=== PATIENT | male | born 1985 | race Caucasian/White ===

== ENCOUNTER 2025-04-02 10:48 | Inpatient (IN) ==
[~2025-04-02 10:48] MED LIST: RAPID SEQUENCE INDUCTION BAG ONE
[2025-04-02] MEDS ORDERED: ASPIRIN CHEW 324 MG ONE (11:04)
[2025-04-02] MEDS ORDERED: SODIUM BICARBONATE 8.4% 150 MEQ in WATER, STERILE 1,000 ML IV SCH (11:15)
--- NOTE | 2025-04-02 11:30 | Emergency Department Note ---
Impression & Plan Cardiac arrest, Acute ST elevation myocardial infarction (STEMI) of inferior wall ED Provider Note HISTORY OF PRESENT ILLNESS: Patient is a 39-year-old male presenting in cardiac arrest. Patient had presented to an outpatient plasma donation center to inquire about donating plasma and while getting registered he had a syncopal event. Bystander CPR was initiated at the infusion center and an AED was placed. Patient received multiple shocks before EMS arrived secondary to him being in ventricular fibrillation. On EMS arrival, the patient was confirmed to be in ventricular fibrillation and given a total of 7 epinephrine, 1 amp of bicarb, 1 g of IV mag and 450 of amiodarone with EMS prehospital. He was intubated with an i-gel. He did have prehospital return of spontaneous circulation, but on repeat pulse check he had lost pulses and ACLS was continued. Patient was found to be in PEA on further rhythm checks. He arrived to the emergency department with CPR in process. Last epinephrine was about 2 minutes prior to arrival in ER. ROS: as above PHYSICAL EXAM: Constitutional: Patient appears in significant distress. Talha device is supplying chest compressions on arrival to the ER. Patient's face is mottled. Pupils are dilated and nonreactive. Cardiovascular: Chest compressions being performed by Talha device. Pulmonary/Chest: Patient is being ventilated via [id number] with an Igel in place. Bilateral breath sounds present. MDM: - Patient arrives as a cardiac arrest with chest compressions being performed by a Talha device. Patient had a syncopal episode prehospital at a plasma infusion center. He had bystander CPR started at the infusion center and an AED supplied 5 shocks prior to EMS arriving on the scene. On EMS arrival, the patient was noted to be in ventricular fibrillation and was shocked an additional 6 times by EMS prehospital. He received a total of 7 epinephrine, 1 amp of bicarb, 1 g of IV magnesium and 450 of amiodarone with EMS prehospital. They reports that they did obtain ROSC prehospital for about 1 minute, but then pulses were lost again and resuscitation was continued. Further pulse check showed that the patient was in PEA and pulseless. He presents with compressions being performed by Talha device. - IV access was obtained. Bedside [id number]-rw-[id number] ultrasound of the heart on first pulse checks that showed no cardiac activity and no obvious flattening of the interventricular septum to suggest PE. Patient was pulseless and in PEA on the monitor. Chest compressions were resumed. He was given a total of an additional 3 of epinephrine while in the emergency department, 2 A of bicarb. Further pulse check showed PEA. He was given a gram of calcium and 1 more gram of magnesium in the emergency department. [id number]-hw-[id number] BMP shows stable electrolytes but a fingerstick glucose of 452. On repeat pulse check at 1058, the patient had a palpable femoral pulse and carotid pulse. Bedside [id number]-fn-[id number] echo showed organized cardiac activity. On telemetry, the patient appears to have ST elevations on the monitor. Bedside EKG obtained at 1101 and interpreted by myself showed an inferior STEMI. ST elevations noted in leads II, III and aVF with reciprocal changes. Heart alert was activated. Dr. Hylton with interventional cardiology who presented to bedside. Patient had an Igel in place and decision was made to get a definitive airway prior to taking to the Watch Band Assembler. Patient's repeat neurological exam shows that he is withdrawing from pain when nurses attempt to IVs in his upper extremities. Pupils are now 3 mm and reactive. He was given 20 mg of IV etomidate and 100 mg of IV succinylcholine for sedation for ET tube placement. A 7.5 ET tube was placed initially at 23 cm at the lip but was advanced to 25. Chest x-ray imaging reviewed by myself shows appropriate tube placement per my interpretation. Patient was taken up to the Watch Band Assembler for further evaluation and management. He will be admitted to the [facility] service in the ICU post Watch Band Assembler. I have personally spent 64 minutes of critical care time in the direct management of this patient. This includes bedside care, interpretation of diagnostic studies, and testing, discussion with consultants, patient, and family members, and other required patient management activities. This 64 minutes is in excess of all separately billable procedures. PROCEDURE: Endotracheal Intubation Indication: Definitive airway; cardiac arrest. The patient was on 100% oxygen via Igel and then when this was removed he was placed on [id number] ventilation. Suction, airway equipment, RSI drugs, respiratory equipment, and appropriate personnel were prepared prior to the initiation of the procedure. A time out was taken. Induction was performed with 20 mg IV etomidate and 100 mg IV succinylcholine. After observing the clinical benefit of the medications, the airway was easily visualized utilizing a S3 glidescope blade. A 7.5 size ETT tube was placed atraumatically to 23 cm using standard technique. The cuff inflated without signs of malfunction. Tube was advanced to 25 cm at the lip. There were bilateral breath sounds, positive colormetric change, no gastric sounds, a good capnography waveform, and post procedure pulse oximetry was 100%. There were no complications. ASSESSMENT AND PLAN: Diagnosis: Cardiac arrest; acute STEMI of inferior wall Plan: to pharmacy laboratory technician Past Med/Surg History Problem List (Updated 04/02/25 @ 11:42 by Cynthia Boles MD) Acute ST elevation myocardial infarction (STEMI) of inferior wall (Acute) Cardiac arrest (Acute) Social History Smoking Status: Unknown if ever smoked Results & Data (ED) Vital Signs Vital Signs - 24 hr 04/02/25 10:51 04/02/25 10:51 04/02/25 11:09 Pulse Rate 95 H Pulse Rate [Finger] Respiratory Rate 32 H Respiratory Effort / Characteristics Mechanically Ventilated Blood Pressure 265/137 H Blood Pressure [Right Arm] Blood Pressure Mean 179 Blood Pressure Mean [Right Arm] Pulse Oximetry 100 100 Oxygen Delivery Method Other Fraction of Inspired Oxygen Sepsis New/Unexplained Change in Mental Status N/A Sepsis Action Taken by Nursing No Action Required 04/02/25 11:09 04/02/25 11:10 04/02/25 11:30 Pulse Rate Pulse Rate [Finger] 105 H Respiratory Rate 30 H 28 H Respiratory Effort / Characteristics Mechanically Ventilated Blood Pressure Blood Pressure [Right Arm] 158/112 H Blood Pressure Mean Blood Pressure Mean [Right Arm] 127 Pulse Oximetry 100 100 Oxygen Delivery Method Mechanical Vent Mechanical Vent Fraction of Inspired Oxygen 80 Sepsis New/Unexplained Change in Mental Status Sepsis Action Taken by Nursing Laboratory Data Lab Results 04/02/25 04/02/25 Range/Units 10:54 10:57 POC Hgb 16.7 (14.0-18.0) g/dl POC Hct 49 (42-52) % POC Sodium 133 L (135-144) mmol/L POC Potassium 3.7 (3.3-5.0) mmol/L POC Chloride 99 L (101-112) mmol/L POC Total CO2 18 L (24-31) mmol/L POC Anion Gap 20.0 (16-25) mmol/L POC BUN 21 H (7-18) mg/dl POC Creatinine 1.4 H (0.6-1.3) mg/dl POC Glucose 425 H* (70-99) mg/dl POC Glucose (other) 412 H* (70-99) mg/dl POC Ioniz Calcium Dilia 1.05 L (1.12-1.32) mmol/l Administered Medications Discontinued Medications Amiodarone HCl/Dextrose (Amiodarone 360mg / 200ml D5w (Watch Band Assembler Use Only)) Confirm Administered Dose 360 mg IV .STK-MED ONE Stop: 04/02/25 11:55 Last Admin: 04/02/25 12:49 Dose: 360 mg Documented By: TLF Amiodarone HCl (Amiodarone Hcl Inj 50 Mg/Ml 3 Ml Vial (Watch Band Assembler Use Only)) Confirm Administered Dose 300 mg IV .STK-MED ONE Stop: 04/02/25 11:51 Last Admin: 04/02/25 12:48 Dose: 300 mg Documented By: TLF Clopidogrel Bisulfate (Clopidogrel Bisulfate 300 Mg Tab) Confirm Administered Dose 600 mg .ROUTE .STK-MED ONE Stop: 04/02/25 12:37 Last Admin: 04/02/25 12:49 Dose: 600 mg Documented By: TLF Eptifibatide (Eptifibatide 2 Mg/Ml 10 Ml Vial (Watch Band Assembler Use Only)) Confirm Administered Dose 40 mg IV .STK-MED ONE Stop: 04/02/25 11:43 Last Admin: 04/02/25 12:46 Dose: 15 mg Documented By: TLF Eptifibatide (Eptifibatide 0.75 Mg/Ml 75mg Vial (Watch Band Assembler Use Only)) Confirm Administered Dose 75 mg IV .STK-MED ONE Stop: 04/02/25 11:43 Last Increment: 04/02/25 12:48 Dose: 12.8 mg Documented By: TLF Fentanyl Citrate (Fentanyl Citrate Pf 100 Mcg/2 Ml Vial) Confirm Administered Dose 100 mcg .ROUTE .STK-MED ONE Stop: 04/02/25 11:05 Last Admin: 04/02/25 12:45 Dose: 100 mcg Documented By: TLF Fentanyl Citrate (Fentanyl Citrate Pf 100 Mcg/2 Ml Vial) Confirm Administered Dose 100 mcg .ROUTE .STK-MED ONE Stop: 04/02/25 12:19 Last Increment: 04/02/25 12:49 Dose: 50 mcg Documented By: TLF Heparin Sodium (Porcine) (Heparin (Porcine) 1000 Unit/Ml 10 Ml (Watch Band Assembler Use Only)) Confirm Administered Dose 10,000 units .ROUTE .STK-MED ONE Stop: 04/02/25 11:05 Last Admin: 04/02/25 12:45 Dose: 9,000 units Documented By: LASHONDA Heparin Sodium/Sodium Chloride (Heparin In Nss Infusion 1000 Unit/500 Ml (2 U/Ml) Bag) Confirm Administered Dose 3,000 units IV .STK-MED ONE Stop: 04/02/25 11:05 Last Admin: 04/02/25 12:45 Dose: 3,000 units Documented By: LASHONDA Ioversol (Optiray 350) Confirm Administered Dose 1 ml .ROUTE .STK-MED ONE Stop: 04/02/25 11:05 Last Admin: 04/02/25 12:45 Dose: 170 ml Documented By: LASHONDA Midazolam HCl (Midazolam Hcl 1 Mg/Ml 2ml Vial) Confirm Administered Dose 2 mg .ROUTE .STK-MED ONE Stop: 04/02/25 11:04 Last Admin: 04/02/25 12:44 Dose: 2 mg Documented By: LASHONDA Midazolam HCl (Midazolam Hcl 1 Mg/Ml 2ml Vial) Confirm Administered Dose 2 mg .ROUTE .STK-MED ONE Stop: 04/02/25 11:54 Last Admin: 04/02/25 12:48 Dose: 2 mg Documented By: LASHONDA Midazolam HCl (Midazolam Hcl 1 Mg/Ml 2ml Vial) Confirm Administered Dose 2 mg .ROUTE .STK-MED ONE Stop: 04/02/25 12:19 Last Admin: 04/02/25 12:49 Dose: 2 mg Documented By: LASHONDA Nicardipine HCl (Nicardipine 2,000 Mcg/20 Ml Syr) Confirm Administered Dose 2,000 mcg .ROUTE .STK-MED ONE Stop: 04/02/25 11:05 Last Admin: 04/02/25 12:46 Dose: 2,000 mcg Documented By: LETICIA Nitroglycerin/Dextrose (Nitroglycerin/D5w 100mcg/Ml 20ml Syr) Confirm Administered Dose 2,000 mcg .ROUTE .STK-MED ONE Stop: 04/02/25 11:05 Last Admin: 04/02/25 12:46 Dose: 2,000 mcg Documented By: LETICIA Propofol (Propofol Iv Emulsion 10 Mg/Ml 100 Ml Vial (Watch Band Assembler Use Only)) Confirm Administered Dose 1,000 mg IV .[employer] ONE Stop: 04/02/25 12:21 Last Admin: 04/02/25 12:49 Dose: 1,000 mg Documented By: TLF Imaging Data Radiologist's Impression: Chest X-Ray 04/02/25 00:00 XR chest 1V portable CLINICAL HISTORY: HEART ALERT COMPARISON STUDY: None FINDINGS: Endotracheal tube tip is at the thoracic inlet. Heart size and pulmonary vasculature are normal. There is patchy consolidation at the right mid and upper lung. No pleural effusion or pneumothorax seen. IMPRESSION: 1. Endotracheal tube tip is at the thoracic inlet. 2. Patchy consolidation at the right lung could represent pneumonia, pulmonary contusion, or asymmetric pulmonary edema. ACT 112: Negative or not required by law. Electronically signed by: Rodrick Katz M.D. 04/02/2025 11:43 AM Discharge Plan Visit Data Chief Complaint: Cardiac Arrest/CPR ED Provider: Cynthia Boles Discharge Problem: Cardiac arrest, Acute ST elevation myocardial infarction (STEMI) of inferior wall Patient Disposition: Admitted As Inpatient Condition: Critical Discharge Instructions Interventions: ED Discharge Assessment Last Done: 04/02/25 11:15
--- NOTE | 2025-04-02 11:45 | XRay Report ---
XR chest 1V portable CLINICAL HISTORY: HEART ALERT COMPARISON STUDY: None FINDINGS: Endotracheal tube tip is at the thoracic inlet. Heart size and pulmonary vasculature are no rmal. There is patchy consolidation at the right mid and upper lung. No pleural effusion or pneumotho rax seen. IMPRESSION: 1. Endotracheal tube tip is at the thoracic inlet. 2. Patchy consolidation at the right lung could represent pneumonia, pulmonary contusion, or asymmetr ic pulmonary edema. ACT 112: Negative or not required by law. Electronically signed by: Rodrick Katz M.D. 04/02/2025 11:43 AM
[2025-04-02] MEDS: MIDAZOLAM HCL 1 MG/ML 2ML VIAL ONE ×3 (12:44→12:49)
[2025-04-02] MEDS: OPTIRAY 350 ONE (12:45)
[2025-04-02] MEDS: HEPARIN (PORCINE) 1000 UNIT/ML 10 ML (CATH LAB USE ONLY) ONE (12:45)
[2025-04-02] MEDS: niCARdipine 2,000 MCG/20 ML SYR ONE (12:46)
[2025-04-02] MEDS: EPTIFIBATIDE 2 MG/ML 10 ML VIAL (CATH LAB USE ONLY) IV ONE (12:46)
[2025-04-02] MEDS: NITROGLYCERIN/D5W 100MCG/ML 20ML SYR ONE (12:46)
[2025-04-02] MEDS: EPTIFIBATIDE 0.75 MG/ML 75MG VIAL (CATH LAB USE ONLY) IV ONE (12:48)
[2025-04-02] MEDS: AMIODARONE HCL INJ 50 MG/ML 3 ML VIAL (CATH LAB USE ONLY) IV ONE (12:48)
[2025-04-02] MEDS: PROPOFOL IV EMULSION 10 MG/ML 100 ML VIAL (CATH LAB USE ONLY) IV ONE (12:49)
[2025-04-02] MEDS: CLOPIDOGREL BISULFATE 300 MG TAB ONE (12:49)
[2025-04-02] MEDS: AMIODARONE 360MG / 200ML D5W (CATH LAB USE ONLY) IV ONE (12:49)
[2025-04-02] MEDS ORDERED: PHENYLEPHRINE 100MCG/ML 5ML SYR ONE (13:30)
[2025-04-02] MEDS ORDERED: LIDOCAINE 1% LOCAL 20 ML VIAL ONE (14:18)
[2025-04-02] MEDS ORDERED: MAG SULFATE 50% 1GM/2ML VIAL IV ONE (15:14)
[2025-04-02] MEDS ORDERED: SODIUM CHLORIDE 0.9% PF INJ 10 ML VIAL IV ONE (15:14)
[2025-04-02] MEDS ORDERED: CALCIUM CHLORIDE 10% 10 ML SYR IV ONE (15:14)
[2025-04-02] MEDS ORDERED: ETOMIDATE 2 MG/ML 20 ML VIAL IV ONE (15:14)
[2025-04-02] MEDS ORDERED: SUCCINYLCHOLINE CHLORIDE 20 MG/ML 10 ML VIAL IV ONE (15:14)
[2025-04-02] MEDS ORDERED: SODIUM BICARB 8.4% INJ 50 MEQ/50 ML SYR IV ONE (15:14)
--- NOTE | 2025-04-02 17:06 | Electrocardiogram Report ---
Test Reason : Blood Pressure : */* mmHG Vent. Rate : 94 BPM Atrial Rate : 94 BPM P-R Int : 158 ms QRS Dur : 112 ms QT Int : 310 ms P-R-T Axes : 64 80 86 degrees QTcB Int : 387 ms Normal sinus rhythm ST elevation consider inferior injury or acute infarct ACUTE [place] / STEMI Consider right ventricular involvement in acute inferior infarct Abnormal ECG No previous ECGs available Confirmed by Clyde Payne ([id number]) on 04/02/2025 5:06:21 PM Referred By: REFERRED SELF Confirmed By: Clyde Payne
--- NOTE | 2025-04-03 19:12 | Cardiac Catheterization ---
[facility] Data: Human Resources District Manager Cardiac Status Clinical evaluation leading to the procedure CAD Presenation: STEMI Anginal Classification: CCS IV Cardiogenic Shock within 24 Hours: Yes Cardiac Arrest within 24 Hours: Yes Imaging Studies Past 6 Months: No Coronary Anatomy Dominant: Co-Dominant Left Main (% Stenosis): Normal LAD (% Stenosis): Normal D1 (% Stenosis): Normal Circumflex (% Stenosis): Normal OM1 (% Stenosis): Normal OM2 (% Stenosis): Normal L PL1 (% Stenosis): Normal L PDA (% Stenosis): Normal RCA (% Stenosis): Proximal (100%) Diagnostic Physicians Name: Danny Hylton MD, PhD Closure Device Percutaneous Entry Location: Femoral Closure Device: None-Manual Hold Recommendations: PCI without planned CABG and Management Recommendatons (Continue Impella cardiac support, transfer to tertiary center for higher level of care and additional needs as indicated.) PCI Indication: PCI for STEMI - Unstable First Noted: First EKG Reason For Delay in PCI:: Cardiac Arrest &/or Lesion Segment Name: Proximal RCA Culprit Artery: Yes Stenosis Prior to Rx (%): 100% Chronic Total Occlusion: No Pre-Procedure GAIL Flow: 0 Previously Treated Lesion: No Lesion Complexity: Non-High/Non-C Lesion Length (mm): 18 Thrombus Present: Yes Bifurcation Lesion: No Guidewire Across Lesion: Yes Intraprocedure Events Significant Disection: No Perforation: No Cardiac Cath Procedure Full Procedure Date April 02, 2025 Pre-Procedure Diagnosis Pre-Procedure Diagnosis: STEMI, Cardiomyopathy and Cardiothoracic Symptom (Cardiac arrest, cardiogenic shock) AUC Score AUC Score: 09 Post-Procedure Diagnosis Post-Procedure Diagnosis: Severe CAD, Successful PCI, Decreased LV Systolic Function and Elevated Intracardiac Pressures Procedure(s) Performed Procedure(s) Performed: Coronary Angiography, Left Heart Cath, Right Heart Cath, Drug Eluting Stent, Ultrasound Guided Vascular Access and Procedure (Impella implantation) Svp Programmatic Tv Danny Hylton MD, PhD Estimated Blood Loss Estimated Blood Loss: 20 Medication(s) Medication(s): Clopidogrel, Epinephrine, Fentanyl, Heparin, Integrilin, Lidocaine 1%, Angel-Synephrine and Versed Medication(s): Propofol Amiodarone Summary of Findings Brief description: Patient arrived from the emergency department after 45 minutes of CPR and return of spontaneous circulation. The patient was intubated. He had received aspirin, and the usual ACLS medications for V-fib arrest. Consent was unable to be obtained. There was no family available at the beginning of the procedure. Patient was shaved and prepped in a sterile fashion. Soft tissues of the right groin were anesthetized using 10 mL of 1% Xylocaine. Using the ultrasound for guidance (image saved) and a 4 Albanian micropuncture kit, the right femoral artery was accessed. This was exchanged over the short 0.35 J-tip wire for a 6 Albanian femoral artery sheath. Then, again using the ultrasound for guidance and the 4 Albanian micropuncture kit the right femoral vein was accessed. The micropuncture sheath was exchanged over a 0.035 J-tip wire for a 7 Albanian femoral venous sheath. The patient's blood pressure had already dropped from the over 200 mmHg systolic that he left the emergency department with. He was normotensive at this time. Decision was made to proceed directly with coronary angiography and PCI. The patient was provided sedation initially with fentanyl and Versed. At the end of the case he was sedated with propofol drip in anticipation of air ambulance evacuation to tertiary center. Left coronary angiography was performed with a 5 Albanian JL 4 diagnostic cath in orthogonal views. Right coronary angiography was performed with a 6 Albanian JR4 guide catheter. We proceeded immediately to PCI. A BMW reversal guidewire was advanced through the guide catheter and positioned distally in the RCA. The lesion was predilated with a 2.5 x 12 mm trek balloon with 3 inflations up to 8 raquel. The balloon was then removed. Data Security Administrator angiography was performed. Patient received a total of 9000 units heparin. Integrilin was then started as a double bolus administration followed by drip. A 2.5 x 22 mm Heath JESE was advanced and positioned across the lesion where it was deployed initially at 14 raquel. A second inflation was performed to 18 raquel. The stent balloon was removed. Data Security Administrator angiography was again performed. Postdilatation of the stent with a 2.75 x 12 mm NC sprinter balloon in the midportion of the stent at 18 raquel. Balloon removed. Postdilatation of the proximal portion of the stent with a 3.0 x 8 mm NC Angel balloon at 10 raquel. The balloon was then removed. Coronary angiography performed. Patient developed reperfusion arrhythmia including NSVT. He was therefore bolused with 300 mg IV amiodarone followed by drip. After removal of the coronary guide catheter a limited right femoral artery angiogram was performed. Patient's blood pressure had dropped to 109/80 mmHg. Decision was made to implant an Impella device. The 6 Albanian femoral artery sheath was exchanged for a 14 Albanian Impella sheath after sequential dilation of the femoral artery access. The 0.035 J-tip wire was then advanced through the sheath and across the aortic valve. A 5 Albanian pigtail catheter was placed in the left ventricle and the 0.035 J-tip wire was removed. The Impella wire was then inserted into the pigtail catheter and placed in the left ventricle. Under fluoroscopic guidance the pigtail catheter was removed maintaining position of the Impella wire in the left ventricle. The Impella device was then advanced over the wire and positioned within the left ventricle. The Impella wire was then removed. The breakaway sheath was removed and Impella shaft sheath was positioned as recommended. The Impella was started and the device adjusted within the ventricle for optimal flow. The Impella position was then fixed in place using the sutures and sterile cover. We next proceeded with [place] catheter placement. A 6 Albanian [place] catheter was advanced through the femoral venous sheath. The balloon was inflated and under fluoroscopic guidance the catheter was advanced into the RV and then across the pulmonic valve into the pulmonary artery where it was advanced to the "wedge position". Pulmonary capillary wedge pressure was obtained. The balloon was then deflated and pulmonary arterial pressures were measured. The [place] catheter was then sutured in place externally. The venous sheath was also sutured in place. The whole right groin access site was then dressed sterilely. Patient had been started on propofol drip for sedation. The life flight crew arrived to prepare the patient for air evacuation. I went to the Human Resources District Manager waiting area to update the patient's brother and additional family member who had arrived and were waiting there. I notified them of the events including the cath, Impella insertion, and his critically ill clinical status. I also informed them that we had requested referral to tertiary center. They agreed with this and wished to leave so that they could meet the patient when he arrived at [facility] in [place]. I returned to the Human Resources District Manager as we awaited the patient's exit. He did have hypotension which we treated with reduction of the propofol drip, administration of Angel-Synephrine and epinephrine, and bolus of normal saline IV fluid. His blood pressure responded positively to these measures. However, his right foot was noted to be pale and pulseless. A Doppler evaluation did not demonstrate a pulse. Eventually, the [facility] team was prepared to take the patient and he left via helicopter to [place]. He had also received 600 mg Plavix loading dose p.o. via the NG tube. This ended the case. Coronary angiography findings: [id number]-uxtcj-keyoxyj short vessel. Bifurcates into LAD and circumflex. No disease. LAD-this is large caliber and transapical. Provides a large branching D1 and a small to medium caliber D2. No angiographically significant disease in the LAD or its branches. LCx-this is large caliber and probably codominant. Provides a large branching OM1, a medium OM 2, posterolateral branch, and a PDA. All of these vessels are without significant disease. RCA-large caliber. 100% occluded proximally. GAIL 0 flow. Distal branch vessel fills via mjyr-ww-lhucc collateralization. PCI RCA-0% residual stenosis post PCI No evidence of dissection or perforation post PCI GAIL-3 flow post PCI Right heart cath PCWP-12 mmHg PAP-33/15 mmHg Impella cardiac output: 3+ liters per minute Note: Limited right femoral artery angiography reveals that the common femoral artery appears to be somewhat small for his size. Probably 6 to 8 mm in luminal diameter (post arrest/vasopressors). Summary: 1. Cardiac arrest, cardiogenic shock status post PCI of the RCA with a single drug-eluting stent. 2. Patient will remain on Impella cardiac support, vasopressors, ventilator, and sedation for transfer to tertiary center ([facility]). 3. Dual antiplatelet therapy with aspirin 81 mg daily and Plavix 75 mg daily. Complete 12 to 18 hours of Integrilin drip. 4. LV Gram not performed but suspect low EF given global hypokinetic appearance of the cardiac silhouette. 5. Pulseless right lower extremity status post Impella implant and need for vasopressor support. Further recommendations pending arrival at tertiary center. 6. Neurologic evaluation when appropriate given reported long duration of CPR before return ROSC. Hemodynamics Rest Ao:: 134/89 mmHg Final Ao: 88/64 mmHg LV: Not performed Recommendations Recommendations: PCI without planned CABG and Management Recommendatons (Continue Impella cardiac support, transfer to tertiary [place] for higher level of care and additional needs as indicated.) Radiation Exposure (mGy) 1984 mGy, fluoroscopy time 18.9 minutes Contrast (mls) 170 mL Anesthesia 6 mg Versed, 150 mcg fentanyl, propofol gtt, time 5505-9042. Procedural Complication(s) Pulseless right foot Disposition ICU (Cardiac ICU [facility]) I attest to the content of the Intraoperative Record and any orders documented therein. Any exceptions are noted below. [facility] Card Cath Procedure Codes Cardiac Catheterization Procedure 1: Cardiovascular Cath Procedures: 86319 Coronaries & LHC (+/-LV) & RHC Therapeutic Services & Ancillary Procedure 1: Cardiovascular Tx and Anc Procedures: 88227 Insertion of Percutaneous Ventricular Assist Device Procedure 2: Cardiovascular Tx and Anc Procedures: 76124 Ultrasonic Guidance Vascular Access Moderate Sedation Procedure 1: Sedation/Anesthesia: 43179 Mod Sedation by the same physician;Init15 Min Child Age 5 & Up (Initial 15 minutes, start time 1124) Procedure 2: Sedation/Anesthesia: 96681 Mod Sedation by the same physician; Ea [id number] Minutes (Additional 79 minutes, end time 1258) Stenting Procedure 1: Cardiovascular Stent Procedures: 41824 Perc transluminal revascularization of acute sub/total occl, aMI (RCA) PG Care Time/CCT Total # of Minutes Spent Total Time Spent with Patient: Total time spent is greater than 50% in coordination of care (as documented) at patient's floor/unit and/or counseling patient:
--- NOTE | 2025-04-03 20:32 | Cardiology Consultation ---
Date of Consultation April 02, 2025 Assessment & Plan (1) Cardiac arrest: Initially V-fib arrest with prolonged CPR including defibrillation until ROSC. Likely secondary to RCA occlusion. Also with PEA which responded to medication and CPR. (2) Acute ST elevation myocardial infarction (STEMI) of inferior wall: 100% occluded RCA status post PCI with implantation of a single drug-eluting stent. Good angiographic outcome. No left-sided coronary disease. Now on dual antiplatelet therapy with aspirin 81 mg daily and Plavix 75 mg daily. He was loaded with 600 mg of Plavix and started on Integrilin drip during PCI. Integrilin drip should continue for 12 to 18 hours until Plavix is fully active. Not currently able to tolerate secondary preventive medications such as beta- zen, statin, DIMITRI inhibitor/ARB but once/if he recovers then these would be appropriate to begin. (3) Cardiogenic shock: Maintaining adequate cardiac output on Impella LV assist device and vasopressor support. Unfortunately, it appears the Impella device in combination with vasopressor pressor support is causing ischemia in the right lower extremity. For now he will require the Impella support. He may need an upgrade to Impella 5.5 and potentially ECMO. His LV was not moving well at all and I suspect he has severe LV dysfunction. May be secondary to prolonged CPR without ROSC until later. Additional management per the receiving cardiology service. History of Present Illness Reason for Consultation: Cardiac arrest Attending Physician: Danny Hylton MD, PhD History of Present Illness 39-year-old gentleman who presented via EMS to the [facility] emergency department following cardiac arrest. ED EKG suggestive of acute inferior ST elevation NV. Evidently, the patient went to the blood donor center and while waiting to be seen sustained cardiac arrest. Bystander CPR was initiated and EMS was called. On their arrival he was evidently in ventricular fibrillation and defibrillatory shocks (5) were deployed during his CPR. Reportedly, this lasted 45 to 50 minutes before he had returned of spontaneous circulation. He then was transported to [facility] and according to the emergency medicine staff he had PEA but responded to CPR and ACLS medications. EKG was performed demonstrating inferior ST elevations. A "heart alert" was called and on my arrival the patient was intubated and unresponsive. He had a very high blood pressure post epinephrine administration (over 250 mmHg systolic). He was also tachycardic. There was no family about so decision was made to take him emergently to the cardiac catheterization suite for coronary angiography plus or minus PCI as indicated. Patient then underwent coronary angiography, right heart cath, Impella left ventricular device implantation, and PCI of the RCA with implantation of a drug-eluting stent. He was at times fighting the ventilator and was sedated initially with Versed and fentanyl but then changed to propofol in anticipation of transport to tertiary center. He did have reperfusion arrhythmia and nonsustained ventricular tachycardia for which amiodarone bolus followed by drip was initiated. He also had hypotension requiring IV fluid resuscitation, vasopressor support, and adjustments in his sedation with propofol. He was noted to have a pale and pulseless right foot following Impella insertion and administration of vasopressor support. The [employer] crew arrived and prepared the patient for transport to [facility] in [place]. Patient had fairly stable blood pressure during that time except when the propofol was at higher dose and needed to be reduced. The patient was then airlifted to [place]. Before the patient's departure, I updated his brother who was in the waiting area. Notified him of the critical nature of the patient's condition, the implantation of the Impella for cardiac support, and successful implantation of a drug-eluting stent to the RCA for the occluded vessel. He and his elastic assembler wished to proceed to drive to [place] so they could be present shortly after the patient's arrival. They seem to understand that while the patient did have a successful PCI for his heart attack that he was still quite ill from a cardiac standpoint and that his neurologic status was questionable particularly given the prolonged downtime/CPR. Note: This is a late entry consultation note. Patient History Social History Smoking Status: Unknown if ever smoked Beliefs That Will Affect Care: None Review of Systems Review of Systems: Unobtainable Physical Exam Constitutional: Young, obese. Critically ill-appearing. Neck: Thick. [place]. Respiratory: Intubated and sedated Cardiovascular: Regular rhythm. Tachycardic rate. No edema appreciated. Neurologic: Intubated and sedated. PG Care Time/CCT Total # of Minutes Spent Total Time Spent with Patient: Total time spent is greater than 50% in coordination of care (as documented) at patient's floor/unit and/or counseling patient: A total of 90 minutes critical care time was spent in the initial evaluation of the patient, examination, review of available records, discussion with the emergency department care team, discussion with the [facility] cardiology service, discussion with the patient's family, discussion with the [employer] crew, formulation and implementation of a plan of care and all associated documentation. This time is exclusive of the time spent on the procedure. Coding Level of Care Code 60580 CRITICAL CARE 1ST 30-74M Diagnoses Cardiac arrest I46.[address] elevation myocardial infarction (STEMI) of inferior wall I21.19 Cardiogenic shock R57.0 Time Spent (min) 90 Comment [phone] (15-minute)
== END 2025-04-02 15:15 | disposition short-term general hospital (02) | DRG 215 ==
LOC: ED 10:48 → CC 11:15 → ASUINP 14:43
PROC: CLB.CRH (2025-04-02 11:15)